=== PATIENT | male | born 1945 | race Caucasian/White ===

== ENCOUNTER 2017-10-19 10:06 | Inpatient (IN) | payer MEDICARE ==
[~2017-10-19] VITALS: Ht 167.6 cm; Wt 86.6 kg
[~2017-10-19 10:06] MED LIST: AMLO5TAB2 PO; ATEN50TA PO; CEPH-264 PO; CRESTOR20 MG PO; FENO145T2 PO; NPH,100V SQ; OMEG500C PO; [UNRECOGNIZED DRUG - CODE] PO
[2017-10-19 11:25] LABS: BASO # 0.1 x10^3/uL (0.0-0.2); BASO % 1 % (0-3); EOS % 3 % (0-3); HEMATOCRIT 33.5 % (39.0-53.0); HEMOGLOBIN 10.8 g/dL (13.0-17.5); LYMPH # 1.5 x10^3/uL (1.0-4.8); LYMPH % 13 % (24-48); MEAN CORPUSCULAR HEMOGLOBIN 30 pg (25-35); MEAN CORPUSCULAR HGB CONC 32 g/dL (31-37); MEAN CORPUSCULAR VOLUME 94 fL (79-100); MONO % 9 % (0-9); NEUT % 73 % (31-73); PLATELET COUNT 297 x10^3/uL (140-400); RED BLOOD COUNT 3.58 x10^6/uL (4.30-5.70); RED CELL DISTRIBUTION WIDTH 16.4 % (11.5-14.5); WHITE BLOOD COUNT 11.1 x10^3/uL (4.0-11.0)
--- NOTE | 2017-10-19 11:25 | PHYS DOC ---
Past Medical History Past Medical History: Arthritis, Diabetes-Type I, GERD, Hypertension, Renal Disease, Other Additional Past Medical Histor: HEMORRHOIDS Past Surgical History: Tonsillectomy, Other Additional Past Surgical Histo: AMPUTATION TOES L FOOT, CARDIAC STENTS, Alcohol Use: None Drug Use: None Adult General Chief Complaint Chief Complaint: LOWER EXTREMITY SWELLING HPI HPI Patient is a 72 year old male who presents with complaint of redness and swelling to the right lower extremity. Patient states his symptoms have been present over the past 1-2 days and have been progressively worsening. The patient has history of chronic diabetic ulcer of the right foot and is currently undergoing routine wound treatment for this wound. Patient follows Dr. Fatima for primary care. Patient states he's had mild increase in pain to the affected extremity but denies any other complaints. Patient denies any associated fevers, nausea, or weakness with his symptoms. Patient also notes he has history of end-stage renal disease and normally undergoes dialysis on Sunday, , and Sunday. Due to the holiday week however, the patient received dialysis on Sunday and Sunday of this week. Review of Systems Review of Systems Constitutional: Denies fever or chills [] Eyes: Denies change in visual acuity, redness, or eye pain [] HENT: Denies nasal congestion or sore throat [] Respiratory: Denies cough or shortness of breath [] Cardiovascular: Denies chest pain[] GI: Denies abdominal pain, nausea, vomiting, bloody stools or diarrhea [] : Denies dysuria or hematuria [] Musculoskeletal: Chronic edema[] Integument: Right lower show any swelling and redness[] Neurologic: Denies headache, focal weakness or sensory changes [] All other systems were reviewed and found to be within normal limits, except as documented in this note. Current Medications Current Medications Current Medications Medications (Trade) Dose Ordered Sig/Yari Start Time Stop Time Status Last Admin Dose Admin Vancomycin HCl (Vanco Per Pharmacy) 1 each PRN DAILY PRN 10/19/17 11:15 10/19/17 13:36 1 EACH Vancomycin HCl 2 gm/Dextrose/ Sodium Chloride 500 ml @ 250 mls/hr 1X ONCE 10/19/17 11:30 10/19/17 13:29 DC 10/19/17 11:28 250 MLS/HR Allergies Allergies Allergies Coded Allergies Type Severity Reaction Last Updated Verified No Known Drug Allergies 2/27/15 No Physical Exam Physical Exam Constitutional: Alert, afebrile, no acute distress. [] HENT: Normocephalic, atraumatic, bilateral external ears normal, oropharynx moist, no oral exudates, nose normal. [] Eyes: PERRLA, EOMI, conjunctiva normal, no discharge. [] Neck: Normal range of motion, no tenderness, supple, no stridor. [] Cardiovascular:Heart rate regular rhythm, no murmur [] Lungs & Thorax: Bilateral breath sounds clear to auscultation [] Abdomen: Bowel sounds normal, soft, no tenderness, no masses, no pulsatile masses. [] Skin: Warm, dry, erythema to right lower extremity. [] Back: No tenderness, no CVA tenderness. [] Extremities: Right lower extremity with 3+ pitting edema, confluence erythema extending to right knee from right foot, 4 cm chronic diabetic ulceration on the volar aspect of right foot with no purulent drainage, good granulation tissue, left lower extremity non-erythematous with 2+ pitting edema. [] Neurologic: Alert and oriented X 3, normal motor function, normal sensory function, no focal deficits noted. [] Current Patient Data Vital Signs Vital Signs Date Time Temp Pulse Resp B/P (MAP) Pulse Ox O2 Delivery O2 Flow Rate FiO2 10/19/17 12:34 94 140/72 (94) 99 Room Air 10/19/17 11:35 18 10/19/17 10:10 97.4 97.4 Lab Values Laboratory Tests Test 10/19/17 10:28 White Blood Count 11.1 x10^3/uL (4.0-11.0) H Red Blood Count 3.58 x10^6/uL (4.30-5.70) L Hemoglobin 10.8 g/dL (13.0-17.5) L Hematocrit 33.5 % (39.0-53.0) L Mean Corpuscular Volume 94 fL (79-100) Mean Corpuscular Hemoglobin 30 pg (25-35) Mean Corpuscular Hemoglobin Concent 32 g/dL (31-37) Red Cell Distribution Width 16.4 % (11.5-14.5) H Platelet Count 297 x10^3/uL (140-400) Neutrophils (%) (Auto) 73 % (31-73) Lymphocytes (%) (Auto) 13 % (24-48) L Monocytes (%) (Auto) 9 % (0-9) Eosinophils (%) (Auto) 3 % (0-3) Basophils (%) (Auto) 1 % (0-3) Neutrophils # (Auto) 8.1 x10^3uL (1.8-7.7) H Lymphocytes # (Auto) 1.5 x10^3/uL (1.0-4.8) Monocytes # (Auto) 1.0 x10^3/uL (0.0-1.1) Eosinophils # (Auto) 0.4 x10^3/uL (0.0-0.7) Basophils # (Auto) 0.1 x10^3/uL (0.0-0.2) Sodium Level 136 mmol/L (136-145) Potassium Level 4.0 mmol/L (3.5-5.1) Chloride Level 101 mmol/L (98-107) Carbon Dioxide Level 26 mmol/L (21-32) Anion Gap 9 (6-14) Blood Urea Nitrogen 25 mg/dL (8-26) Creatinine 4.0 mg/dL (0.7-1.3) H Estimated GFR (Cockcroft-Gault) 14.8 BUN/Creatinine Ratio 6 (6-20) Glucose Level 122 mg/dL (70-99) H Calcium Level 9.5 mg/dL (8.5-10.1) Total Bilirubin 0.3 mg/dL (0.2-1.0) Aspartate Amino Transferase (AST) 20 U/L (15-37) Alanine Aminotransferase (ALT) 17 U/L (16-63) Alkaline Phosphatase 136 U/L (46-116) H Total Protein 8.3 g/dL (6.4-8.2) H Albumin 2.9 g/dL (3.4-5.0) L Albumin/Globulin Ratio 0.5 (1.0-1.7) L Laboratory Tests 10/19/17 10:28 Laboratory Tests 10/19/17 10:28 EKG EKG Not performed[] Radiology/Procedures Radiology/Procedures Not performed[] Course & Med Decision Making Course & Med Decision Making Pertinent Labs and Imaging studies reviewed. (See chart for details) Patient has extensive cellulitis of the right lower extremity. The patient's diabetic wound does not appear to be actively infected though this may be a portal been treated for the patient's current lower show any infection. Given patient's end-stage renal disease and peripheral edema, the patient may have a complicated course and is at risk for severe infection. For this reason, the patient will be admitted the hospital and treated with vancomycin. Patient admitted to Dr. Fatima for further care. Dragon Disclaimer Dragon Disclaimer This electronic medical record was generated, in whole or in part, using a voice recognition dictation system. Departure Departure Impression: Primary Impression: Cellulitis of right lower extremity Additional Impressions: Diabetic foot ulcer End stage renal disease Peripheral edema Disposition: ADMITTED INPATIENT Admitting Physician: Julius Fatima Condition: GUARDED Referrals: JULIUS FATIMA MD (PCP) Problem Qualifiers Additional Impressions: Diabetic foot ulcer Diabetic foot ulcer location: midfoot Diabetes mellitus type: type 1 Laterality: right Non-pressure ulcer stage: with fat layer exposed Qualified Codes: E10.621 - Type 1 diabetes mellitus with foot ulcer; L97.412 - Non-pressure chronic ulcer of right heel and midfoot with fat layer exposed BREANA PISANO MD Oct 19, 2017 11:25
[2017-10-19] MEDS ORDERED: VANCOMYCIN 2 GM in IV DEXTROSE 5 %-0.2 % NACL 500 ML IV ONE (11:30)
[2017-10-19 11:36] LABS: CALCIUM 9.5 mg/dL (8.5-10.1); GFR 14.8
[2017-10-19 11:42] LABS: ALBUMIN 2.9 g/dL (3.4-5.0); ALBUMIN/GLOBULIN RATIO 0.5 (1.0-1.7); TOTAL BILIRUBIN 0.3 mg/dL (0.2-1.0); TOTAL PROTEIN 8.3 g/dL (6.4-8.2)
[2017-10-19] MEDS: VANCOMYCIN PER PHARMACY MC PRN (13:36)
[2017-10-19] MEDS ORDERED: ACETAMINOPHEN 325 MG TABLET. PO PRN (13:45)
[2017-10-19] MEDS ORDERED: ONDANSETRON PF 4 MG/2 ML VIAL. IV PRN (13:45)
[2017-10-19 15:00] VITALS: BP 115/53
[2017-10-19 19:00] VITALS: BP 134/81
[2017-10-19 23:00] VITALS: BP 150/81
[2017-10-20 03:00] VITALS: BP 101/58
[2017-10-20 04:44] LABS: BASO # 0.1 x10^3/uL (0.0-0.2); BASO % 1 % (0-3); EOS % 4 % (0-3); HEMATOCRIT 30.7 % (39.0-53.0); HEMOGLOBIN 10.1 g/dL (13.0-17.5); LYMPH # 0.9 x10^3/uL (1.0-4.8); LYMPH % 10 % (24-48); MEAN CORPUSCULAR HEMOGLOBIN 31 pg (25-35); MEAN CORPUSCULAR HGB CONC 33 g/dL (31-37); MEAN CORPUSCULAR VOLUME 94 fL (79-100); MONO % 11 % (0-9); NEUT % 75 % (31-73); PLATELET COUNT 241 x10^3/uL (140-400); RED BLOOD COUNT 3.28 x10^6/uL (4.30-5.70); RED CELL DISTRIBUTION WIDTH 15.8 % (11.5-14.5); WHITE BLOOD COUNT 9.9 x10^3/uL (4.0-11.0)
[2017-10-20 05:02] LABS: CREATININE 4.5 mg/dL (0.7-1.3); GFR 12.9; POTASSIUM 4.2 mmol/L (3.5-5.1)
[2017-10-20 07:25] VITALS: BP 142/89
[2017-10-20] MEDS ORDERED: DEXTROSE 50% 25 GM / 50ML DISP.SYRIN. IV PRN (07:45)
[2017-10-20] MEDS: INSULIN ASPART 300 UNITS/3 ML INSULN.PEN SQ SCH ×3 (07:56→16:34)
[2017-10-20] MEDS ORDERED: FENOFIBRATE,MICRONIZED 134 MG CAPSULE PO SCH (09:00)
[2017-10-20] MEDS ORDERED: CEPHALEXIN 250 MG CAPSULE. PO SCH (09:00)
[2017-10-20] MEDS: OMEGA-3 FATTY ACIDS/FISH OIL 1,000 MG CAPSULE. PO SCH (09:00)
[2017-10-20] MEDS ORDERED: ATENOLOL 50 MG TABLET. PO SCH (09:00)
[2017-10-20] MEDS ORDERED: FLAXSEED PO SCH (09:00)
[2017-10-20] MEDS ORDERED: amLODIPine BESYLATE 5 MG TABLET PO SCH (09:00)
[2017-10-20] MEDS ORDERED: ATOR20TA58 PO (09:12)
[2017-10-20] MEDS ORDERED: CHOL500016 PO (09:13)
[2017-10-20] MEDS ORDERED: ASPI-630 PO (09:13)
[2017-10-20] MEDS: ASPIRIN CHEWABLE 81 MG TABLET. PO SCH (09:33)
[2017-10-20] MEDS: CHOLECALCIFEROL (VITAMIN D3) 5,000 UNIT CAPSULE PO SCH (09:33)
--- NOTE | 2017-10-20 11:07 | PDOC ---
Provider Note Provider Note [id number] JORDIN WAGNER MD Oct 20, 2017 11:07
[2017-10-20 11:14] VITALS: BP 119/60
[2017-10-20] MEDS ORDERED: DIALYSIS PATIENT. MC PRN ×3 (11:15→12:45)
--- NOTE | 2017-10-20 11:23 | HP ---
ADMIT DATE: 10/19/2017 CHIEF COMPLAINT: Swollen leg. HISTORY OF PRESENT ILLNESS: A 72-year-old insulin-dependent male who is on hemodialysis for the last few months, has had a wound on his foot and has been cared for by a nurses' association counselor with this. Apparently, the wound has been improving, although he has been on oral cephalexin per the record, but then he developed increasing redness and swelling of his leg and came into the Emergency Room. He was admitted as a cellulitis with IV vancomycin and is in dialysis at this time. MEDICATIONS: Listed per the chart. He takes Humulin N twice a day at home. ALLERGIES: No allergies known. PAST MEDICAL HISTORY: Tetanus status is uncertain. He has a shunt in place for dialysis. Last A1c was 7.9 in June. Other immunizations are uncertain. SOCIAL HISTORY: , disabled, physically active, nondrinker. FAMILY HISTORY: Unremarkable. REVIEW OF SYSTEMS: Unremarkable. OBJECTIVE: HEENT: All within normal limits. He has a healed surgical wound on the scalp from prior skin cancer. NECK: No carotid bruits, nodes, or thyroid enlargement. LUNGS: Clear. CARDIOVASCULAR: Regular rate. No irregular beat, tachycardia or murmur. ABDOMEN: Obese, soft and nontender. EXTREMITIES: He has a large boot with a dressed wound on the left foot. The leg is swollen, red, diffusely tender, but no streaks or adenopathy is noted. Extremities otherwise are unremarkable. Decent pedal pulses in the other foot. NEUROLOGIC: Physiologic and nonfocal, very poor hearing. ASSESSMENT: Cellulitis, left lower extremity secondary to chronic foot wound. He has end-stage renal disease on dialysis and insulin-dependent diabetes as complicating factors. PLAN: Vancomycin after each dialysis. JORDIN WAGNER MD DR: YULIANA/luis JOB#: [id number] / [id number]
[2017-10-20] MEDS: PIPERACILLIN/TAZO IV Push 2.25 GM VIAL. IVP SCH ×2 (12:00→21:18)
[2017-10-20] MEDS ORDERED: PIPERACILLIN/TAZOBACTAM 2.25 GM in IV DEXTROSE 5% 50 ML IV SCH (12:00)
[2017-10-20] MEDS ORDERED: IV NORMAL SALINE 1000ML BAG 1,000 ML IV PRN ×2 (12:42)
[2017-10-20] MEDS: INSULIN DETEMIR 300 UNITS/3 ML INSULN.PEN. SQ SCH ×2 (13:00→21:00)
[2017-10-20] MEDS ORDERED: VANCOMYCIN 1 GM in IV DEXTROSE 5% 250 ML IV SCH (15:00)
[2017-10-20] MEDS: HEPARIN PF for SUB-Q USE 5,000 UNIT/0.5 ML VIAL. SQ SCH ×2 (15:00→21:00)
[2017-10-20] MEDS: VANCOMYCIN PER PHARMACY MC PRN (15:13)
[2017-10-20 16:46] VITALS: BP 122/59
--- NOTE | 2017-10-20 17:26 | CONS ---
DATE OF CONSULTATION: REQUESTING PHYSICIAN: Dr. Julius Fatima. REASON FOR CONSULTATION: Renal failure. HISTORY OF PRESENT ILLNESS: A 72-year-old gentleman with history of insulin-dependent diabetes mellitus who is currently on hemodialysis of recent. He undergoes dialysis on a Sunday, , Sunday schedule. He is currently admitted with some swelling of the right lower extremity with a wound on his right foot. This is felt consistent with cellulitis. PAST MEDICAL HISTORY: Diabetes mellitus, hypertension, end-stage renal disease, hemodialysis dependent, vascular access placement; anemia of chronic kidney disease, secondary hyperparathyroidism of renal disease. ALLERGIES: None. MEDICATIONS: Per medication list. FAMILY HISTORY: Noncontributory. SOCIAL HISTORY: The patient resides with family. REVIEW OF SYSTEMS: No headaches, sinus problem, nasal drainage, epistaxis, change in vision or hearing. No difficulty swallowing. No fever, chills, cough, sputum production, or hemoptysis. No chest pain or shortness of breath. No abdominal pain. He did have a fall, he has some pain in the right lower extremity to include the knee. No seizures or malignancies. PHYSICAL EXAMINATION: GENERAL APPEARANCE: The patient awake, conversant. HEENT: Clear with markedly reduced auditory acuity. NECK: No increased JVD. No thyromegaly, mass, adenopathy. LUNGS: Clear. CARDIAC: Without S3 or rub. ABDOMEN: Soft, nontender, no bruits. EXTREMITIES: Right greater than left lower extremity edema, 2+ right, 1+ left. NEUROLOGIC: Nonfocal localizing. PSYCHIATRIC: Fair attention to detail, appropriate affect. LABORATORY DATA: Hemoglobin 10.1, white count 9.9. Potassium 4.2, CO2 of 24, creatinine 4.5, GFR 12.9. IMPRESSION: 1. End-stage renal disease secondary to diabetic nephropathy -- hemodialysis dependent Sunday, , Sunday. 2. Anemia of chronic kidney disease. 3. Secondary hyperparathyroidism of renal disease. 4. Right lower extremity, primarily foot cellulitis. RECOMMENDATIONS: 1. Antibiotics pending culture results. 2. Ongoing dialysis Sunday, , Sunday. 3. Epogen for anemia of chronic kidney disease. We will follow. LYNDSAY AKERS MD DR: TYLOR/luis JOB#: [id number] / [id number]
[2017-10-20 19:00] VITALS: BP 123/70
[2017-10-20] MEDS ORDERED: ATORVASTATIN CALCIUM 40 MG TABLET. PO SCH (21:00)
[2017-10-20] MEDS: LACTOBACILLUS RHAMNOSUS GG 1 CAPSULE. PO SCH (21:17)
[2017-10-20] MEDS: ATORVASTATIN CALCIUM 20 MG TABLET PO SCH (21:20)
[2017-10-20 23:00] VITALS: BP 107/50
[2017-10-21 03:14] VITALS: BP 107/54
[2017-10-21] MEDS ORDERED: VANCOMYCIN RANDOM LEVEL. MC ONE (06:00)
[2017-10-21] MEDS: PIPERACILLIN/TAZO IV Push 2.25 GM VIAL. IVP SCH ×3 (06:30→21:21)
[2017-10-21 07:00] VITALS: BP 116/53
[2017-10-21] MEDS: OMEGA-3 FATTY ACIDS/FISH OIL 1,000 MG CAPSULE. PO SCH (07:11)
--- NOTE | 2017-10-21 08:35 | PDOC ---
Provider Note Provider Note R lower leg less swollen and tender, no streaks/nodes, knee ok- 4 x 4 cm subq wound plantar foor clean , red, good cap bleeding, no tunneling/drainage seen- sees educational resource coordinator re same, last 1 m ago- will xr but no clinical osteo- cont current meds, id consult re op needs JORDIN WAGNER MD Oct 21, 2017 08:35
[2017-10-21] MEDS: LACTOBACILLUS RHAMNOSUS GG 1 CAPSULE. PO SCH ×2 (08:58→21:21)
[2017-10-21] MEDS: CHOLECALCIFEROL (VITAMIN D3) 5,000 UNIT CAPSULE PO SCH (08:58)
[2017-10-21] MEDS: ASPIRIN CHEWABLE 81 MG TABLET. PO SCH (08:58)
[2017-10-21] MEDS: INSULIN ASPART 300 UNITS/3 ML INSULN.PEN SQ SCH ×4 (09:05→21:38)
[2017-10-21] MEDS: VANCOMYCIN PER PHARMACY MC PRN (09:33)
[2017-10-21] MEDS ORDERED: VANCOMYCIN 500 MG in IV DEXTROSE 5% 100 ML IV SCH (10:00)
[2017-10-21] MEDS: VANCOMYCIN 500 MG in IV NORMAL SALINE 100ML 100 ML IV SCH (10:00)
[2017-10-21 11:00] VITALS: BP 131/63
--- NOTE | 2017-10-21 12:00 | RAD ---
FOOT RIGHT 2V History:Plantar ulcer right foot Comparison: 06/18/2006 Findings:2 views of the right foot are submitted. There is again small linear wire at the level of the mid foot posteriorly at level of the third and fourth tarsometatarsal articulation. There has been progression of marginated osteolysis of the distal aspects of the second and third metatarsals, some minimal residual bone fragments in this region. There is bone demineralization. The no aggressive bone destruction is seen at the plantar margin of the bones. There is other osteolysis of the distal aspects of the first, fourth, and fifth metatarsals as seen previously. Impression: 1.Comparing with the 2005 exam, there has been further progression of osteolysis involving the distal aspects of the second and third metatarsals although fairly marginated. There is other osteolysis of the metatarsals which is more similar in appearance. No aggressive focal bone destruction is identified. There is bone demineralization. There is again small wire of the posterior mid foot laterally.
--- NOTE | 2017-10-21 12:21 | PDOC ---
Infectious Disease Note Vital Sign Vital Signs Vital Signs Date Time Temp Pulse Resp B/P (MAP) Pulse Ox O2 Delivery O2 Flow Rate FiO2 10/21/17 07:00 97.9 81 16 116/53 (74) 94 Room Air 97.9 Labs Lab Laboratory Tests Test 10/20/17 16:29 10/20/17 20:34 10/21/17 07:29 10/21/17 08:20 Glucose (Fingerstick) 91 mg/dL (70-99) 192 mg/dL (70-99) 177 mg/dL (70-99) Random Vancomycin Level 14.3 mcg/mL Test 10/21/17 11:42 Glucose (Fingerstick) 245 mg/dL (70-99) Objective Assessment Chronic diabetic ulcer w/ cellulitis of right foot Diabetes with neuropathy Leukocytosis, improved CKD/HD Plan Plan of Care continue abx for now. Check ESR and await x-ray results F/u labs and cultures Local wound care Thank you [id number] Patient seen and examined. Case discussed with PRODUCT SPECIALIST. Chart reviewed in [facility]aii. Agree with above plan. ROLANDO LYONS APRN Oct 21, 2017 12:21 DEBRA BORJAS MD Oct 21, 2017 16:29
[2017-10-21] MEDS: INSULIN DETEMIR 300 UNITS/3 ML INSULN.PEN. SQ SCH (13:24)
[2017-10-21 15:00] VITALS: BP 110/57
[2017-10-21 19:00] VITALS: BP 126/58
[2017-10-21] MEDS ORDERED: INSULIN DETEMIR 300 UNITS/3 ML INSULN.PEN. SQ ONE (20:45)
[2017-10-21] MEDS: ATORVASTATIN CALCIUM 20 MG TABLET PO SCH (21:21)
[2017-10-21 23:00] VITALS: BP 115/54
--- NOTE | 2017-10-21 23:56 | CONS ---
DATE OF CONSULTATION: 10/21/2017 This is Yared Unger NP, dictating for Debra Borjas MD REFERRING PHYSICIAN: Dr. Fatima. REASON FOR CONSULTATION: Foot ulcer. HISTORY OF PRESENT ILLNESS: This patient is a 72-year-old male with a past medical history of diabetes mellitus with neuropathy who developed an ulcer on his right foot about 4 months ago. He is followed by handbag framer, Dr. Melo and had undergone previous debridements and he was recently on Keflex. Over the last couple days, he has noticed increased pain, swelling and redness of the right foot. He had a slight elevation of his white count and an x-ray is pending. He was started on vancomycin and Zosyn in the ER. PAST MEDICAL HISTORY: Chronic kidney disease on hemodialysis, diabetes mellitus, peripheral neuropathy, history of polio as a child with several foot surgeries, coronary artery disease, hyperlipidemia, hypertension, gastroesophageal reflux disease, umbilical hernia, hyperparathyroidism and anemia of chronic kidney disease. PAST SURGICAL HISTORY: Tonsillectomy, coronary stents, amputation of several toes and foot surgeries, AV fistula formation. SOCIAL HISTORY: The patient is and lives at home. Nonsmoker. FAMILY HISTORY: Noncontributory. ALLERGIES: No known drug allergies. MEDICATIONS: Vancomycin and Zosyn. Other medications are available and have been reviewed on the MAR. REVIEW OF SYSTEMS: The patient is feeling fairly comfortable. He is enjoying his lunch currently. He says he fell a couple days ago and since having some mild right knee pain. He is ambulatory with a walker. He denies trouble with weightbearing. He feels the redness and swelling of right foot is improving. Denies fevers, chills or body aches. Denies nausea, vomiting or diarrhea. Denies cough, shortness of air or wheezing. Denies palpitations or rash. PHYSICAL EXAMINATION: GENERAL: male, propped up in bed, eating, no apparent distress. VITAL SIGNS: Afebrile, blood pressure is 116/53, heart rate 81, respiratory rate 16, pulse oximetry is 94% on room air, weight 190 pounds. BMI 30. HEENT: Pupils equally round, reactive. Normal conjunctivae. Oral mucosa is pink and moist. LUNGS: Clear. HEART: Normal S1 and S2. ABDOMEN: Obese. Bowel sounds present, soft, nontender. EXTREMITIES: Right lower extremity 1+ edema, slightly erythematous and warm. He has a plantar ulcer that appears clean. Refer to PICK's in chart. Dorsalis pedis palpable. SKIN: Without rash. NEUROLOGIC: Alert and oriented x 3. LABORATORY DATA: Today, his WBC 9.9 from 11.1 on admission, hemoglobin is 10.1, hematocrit 30.7, platelet count 241,000. Recent creatinine 4.5, BUN 30. Electrolytes are unremarkable. Glucose 155. Hemoglobin A1c 7.0, total bilirubin 0.3, AST 20, ALT 17, albumin 2.9. Random vancomycin trough 14.3. X-ray right foot pending. Urinalysis is pending. IMPRESSION: 1. Chronic diabetic ulcer with cellulitis of right foot. 2. Diabetes with neuropathy. 3. Leukocytosis. 4. Chronic kidney disease, on hemodialysis. PLAN: For now, continue the antibiotics. We will check a sed rate and await x-ray of the foot. Local wound care. Thank you, Dr. Fatima for asking us to participate in this patient's care. Should you have further questions or concerns, please call. DEBRA BORJAS MD DR: TRA/luis JOB#: [id number] / [id number]
[2017-10-22 03:00] VITALS: BP 136/56
[2017-10-22] MEDS: PIPERACILLIN/TAZO IV Push 2.25 GM VIAL. IVP SCH ×3 (06:21→22:38)
[2017-10-22 07:00] VITALS: BP 133/74
--- NOTE | 2017-10-22 08:11 | PDOC ---
Provider Note Provider Note no temp, R lower leg looks better, plantar ulcer clean, xr shows no sign of osteo- on vanco,zosyn, could dc zosyn? likely gram + is culprit, then po keflex/ clinda?, will get ID opinion- encouraged to take his levemir re high glucose, takes 90/d at home JORDIN WAGNER MD Oct 22, 2017 08:11
[2017-10-22] MEDS ORDERED: INSULIN DETEMIR 300 UNITS/3 ML INSULN.PEN. SQ SCH ×2 (09:00)
[2017-10-22] MEDS: LACTOBACILLUS RHAMNOSUS GG 1 CAPSULE. PO SCH ×2 (09:28→21:45)
[2017-10-22] MEDS: ASPIRIN CHEWABLE 81 MG TABLET. PO SCH (09:28)
[2017-10-22] MEDS: CHOLECALCIFEROL (VITAMIN D3) 5,000 UNIT CAPSULE PO SCH (09:28)
[2017-10-22] MEDS: OMEGA-3 FATTY ACIDS/FISH OIL 1,000 MG CAPSULE. PO SCH (09:28)
[2017-10-22 11:00] VITALS: BP 127/71
[2017-10-22] MEDS: INSULIN ASPART 300 UNITS/3 ML INSULN.PEN SQ SCH ×2 (12:45→17:22)
--- NOTE | 2017-10-22 13:54 | PDOC ---
Infectious Disease Note Subjective Subjective pt feels ok, no complaints ROS ROS negative extensive ros Vital Sign Vital Signs Vital Signs Date Time Temp Pulse Resp B/P (MAP) Pulse Ox O2 Delivery O2 Flow Rate FiO2 10/22/17 11:00 95.9 81 18 127/71 (89) 94 Room Air 95.9 Physical Exam PHYSICAL EXAM HEENT: anicteric ,normal oral mucosa LUNGS: Clear. HEART: Normal S1 and S2. ABDOMEN: Obese. Bowel sounds present, soft, nontender. EXTREMITIES: Right lower extremity 1+ edema, slightly erythematous and warm. He has a plantar ulcer that appears clean. Refer to PICs in chart. SKIN: no gen rash. NEUROLOGIC: Alert and oriented x 3. Labs Lab Laboratory Tests Test 10/21/17 16:41 10/21/17 20:19 10/22/17 03:11 10/22/17 10:20 Glucose (Fingerstick) 309 mg/dL (70-99) 409 mg/dL (70-99) 253 mg/dL (70-99) 238 mg/dL (70-99) Micro BC NEG Radiology X ray foot Impression: 1.Comparing with the 2005 exam, there has been further progression of osteolysis involving the distal aspects of the second and third metatarsals although fairly marginated. There is other osteolysis of the metatarsals which is more similar in appearance. No aggressive focal bone destruction is identified. There is bone demineralization. There is again small wire of the posterior mid foot laterally. Objective Assessment Chronic diabetic ulcer w/ cellulitis of right foot Diabetes with neuropathy Leukocytosis, improved CKD/HD Plan Plan of Care continue abx for now. F/u labs and cultures Local wound care KIRT POOL MD Oct 22, 2017 13:53
[2017-10-22] MEDS: VANCOMYCIN PER PHARMACY MC PRN (13:59)
[2017-10-22 15:00] VITALS: BP 123/64
[2017-10-22 19:30] VITALS: BP 147/72
[2017-10-22] MEDS: ATORVASTATIN CALCIUM 20 MG TABLET PO SCH (21:45)
[2017-10-22] MEDS ORDERED: INSULIN ASPART 300 UNITS/3 ML INSULN.PEN SQ ONE (22:00)
[2017-10-22 23:00] VITALS: BP 106/55
[2017-10-23 03:16] VITALS: BP 129/60
[2017-10-23] MEDS: PIPERACILLIN/TAZO IV Push 2.25 GM VIAL. IVP SCH (06:00)
[2017-10-23 07:23] VITALS: BP 138/70
--- NOTE | 2017-10-23 08:17 | DISCH ---
DISCHARGE INSTRUCTIONS Condition on Discharge Condition on Discharge: Stable Activity After Discharge Activity Instructions for Disc: No restrictions Diet after Discharge Diet after Discharge: Diabetic No Calorie Level Follow-Up Follow up with: JORDIN Ch MD Oct 23, 2017 08:17
--- NOTE | 2017-10-23 08:21 | PDOC ---
Provider Note Provider Note [id number] JORDIN WAGNER MD Oct 23, 2017 08:21
[2017-10-23] MEDS ORDERED: INSULIN DETEMIR 300 UNITS/3 ML INSULN.PEN. SQ SCH (09:00)
[2017-10-23] MEDS: LACTOBACILLUS RHAMNOSUS GG 1 CAPSULE. PO SCH (09:06)
[2017-10-23] MEDS: ASPIRIN CHEWABLE 81 MG TABLET. PO SCH (09:06)
[2017-10-23] MEDS: OMEGA-3 FATTY ACIDS/FISH OIL 1,000 MG CAPSULE. PO SCH (09:06)
[2017-10-23] MEDS: CHOLECALCIFEROL (VITAMIN D3) 5,000 UNIT CAPSULE PO SCH (09:06)
[2017-10-23] MEDS: INSULIN ASPART 300 UNITS/3 ML INSULN.PEN SQ SCH ×3 (09:16→17:19)
[2017-10-23 11:09] VITALS: BP 137/68
--- NOTE | 2017-10-23 12:09 | PDOC ---
Infectious Disease Note Subjective Subjective pt feels ok, no complaints been dc home today after dialyss session rt leg swelling,redness resolving no f/c/n/v/d ROS ROS GEN: Denies fevers, chills, sweats HEENT: Denies blurred vision, sore throat CV: Denies chest pain RESP: Denies shortness of air, cough GI: Denies n/v/d NEURO: Denies confusion, dizziness MSK: Denies weakness, joint pain/swelling Vital Sign Vital Signs Vital Signs Date Time Temp Pulse Resp B/P (MAP) Pulse Ox O2 Delivery O2 Flow Rate FiO2 10/23/17 11:09 97.2 78 16 137/68 (91) 95 Room Air 97.2 10/23/17 07:23 98.0 Physical Exam PHYSICAL EXAM HEENT: anicteric ,normal oral mucosa LUNGS: Clear. HEART: Normal S1 and S2. ABDOMEN: Obese. Bowel sounds present, soft, nontender. EXTREMITIES: Right lower extremity edema,erythema ,warmth almost resolved He has a plantar ulcer that appears clean. SKIN: no gen rash. NEUROLOGIC: Alert and oriented x 3. Labs Lab Laboratory Tests Test 10/22/17 16:25 10/22/17 21:36 10/23/17 07:45 10/23/17 11:56 Glucose (Fingerstick) 267 mg/dL (70-99) 339 mg/dL (70-99) 213 mg/dL (70-99) 255 mg/dL (70-99) Micro BC NEG Radiology X ray foot Impression: 1.Comparing with the 2005 exam, there has been further progression of osteolysis involving the distal aspects of the second and third metatarsals although fairly marginated. There is other osteolysis of the metatarsals which is more similar in appearance. No aggressive focal bone destruction is identified. There is bone demineralization. There is again small wire of the posterior mid foot laterally. Objective Assessment Chronic diabetic ulcer w/ cellulitis of right foot improving Diabetes with neuropathy Leukocytosis resolved CKD/HD Plan Plan of Care Pt is been dc home today dc iv abx will dc home on po keflex, renal dosing and doxycycline s/e explained including c diff edu done F/u pcp in 2 weeks Local wound care KIRT POOL MD Oct 23, 2017 12:09
[2017-10-23] MEDS ORDERED: IV NORMAL SALINE 1000ML BAG 1,000 ML IV PRN ×2 (12:43)
[2017-10-23] MEDS ORDERED: DIALYSIS PATIENT. MC PRN ×2 (12:45)
--- NOTE | 2017-10-23 15:55 | DS ---
DATE OF DISCHARGE: 10/23/2017 HOSPITAL SUMMARY: A 72-year-old white male recently started on dialysis. He is also an insulin-dependent diabetic with chronic right plantar wound. He developed cellulitis of the right lower extremity extending up to the mid calf with tenderness, redness and swelling. He was afebrile throughout the hospital course. CBC was unremarkable. Sed rate elevated at 71. Chemistry profile showed elevated blood sugars and creatinine 4.5 consistent with end-stage renal disease. Vitamin D level was normal at 37. Vancomycin levels were therapeutic. Blood cultures had no growth. X-ray of the foot showed no sign of any osteomyelitis. He was treated with IV vancomycin and Zosyn and is clinically much improved, will be given another dose of vancomycin after dialysis today and switched to oral cephalexin therapy and followed as an outpatient. FINAL DIAGNOSES: 1. Cellulitis of the right lower extremity. 2. Diabetic foot ulcer, right foot, chronic, stable. 3. End-stage renal disease, on dialysis. OPERATIONS, PROCEDURES, COMPLICATIONS: None. CONSULTATIONS: Dr. Alf Bailey of Infectious Disease. DISPOSITION: He will take Keflex 500 mg daily starting tomorrow and after each dialysis session. We will see him in the office in 3 days in clinical followup as we do not know the specific organism of the cellulitis, but the foot wound looks very clean and not deep and tracking clinically. Prognosis is guarded. JORDIN WAGNER MD DR: YULIANA/nts JOB#: [id number] / [id number]
[2017-10-23] MEDS: VANCOMYCIN 500 MG in IV NORMAL SALINE 100ML 100 ML IV SCH (16:00)
[2017-10-23] MEDS ORDERED: DOXY100T PO (16:00)
[2017-10-23] MEDS ORDERED: CEPH-264 PO (16:00)
== END 2017-10-23 17:45 | disposition home or self-care (01) | DRG 602 ==
LOC: ER 10:06 → 4 NORTH 13:18
PROVIDERS: ADMIT Family Medicine; ATTEND Family Medicine
PROC: 5A1D70Z Performance of Urinary Filtration, Intermittent, Less than 6 Hours Per Day (ICD-10-PCS; principal; 2017-10-20)
PROC: 5A1D70Z Performance of Urinary Filtration, Intermittent, Less than 6 Hours Per Day (ICD-10-PCS; 2017-10-20)
DX: L03.115 Cellulitis of right lower limb (principal); N18.6 End stage renal disease; E11.21 Type 2 diabetes mellitus with diabetic nephropathy; E11.42 Type 2 diabetes mellitus with diabetic polyneuropathy; I12.0 Hypertensive chronic kidney disease with stage 5 chronic kidney disease or end stage renal disease; N25.81 Secondary hyperparathyroidism of renal origin; E11.621 Type 2 diabetes mellitus with foot ulcer; L97.519 Non-pressure chronic ulcer of other part of right foot with unspecified severity; L03.116 Cellulitis of left lower limb; D63.1 Anemia in chronic kidney disease; E11.22 Type 2 diabetes mellitus with diabetic chronic kidney disease; Z79.4 Long term (current) use of insulin; K21.9 Gastro-esophageal reflux disease without esophagitis; M81.0 Age-related osteoporosis without current pathological fracture; Z86.12 Personal history of poliomyelitis; Z95.5 Presence of coronary angioplasty implant and graft; Z99.2 Dependence on renal dialysis; M19.90 Unspecified osteoarthritis, unspecified site; Z89.429 Acquired absence of other toe(s), unspecified side
CPT/HCPCS: 36415; 73620; 80048; 80053; 80202; 82306; 82962; 83036; 85025; 85651; 87040; 96365; 96366; J1815; J2543; J3370; 97530; 99285-25

== ENCOUNTER 2018-06-20 14:37 | Inpatient (IN) | payer MEDICARE ==
[2018-06-20 16:32] LABS: HEMATOCRIT 36.3 % (39.0-53.0); HEMOGLOBIN 12.3 g/dL (13.0-17.5); MEAN CORPUSCULAR HEMOGLOBIN 33 pg (25-35); MEAN CORPUSCULAR HGB CONC 34 g/dL (31-37); MEAN CORPUSCULAR VOLUME 97 fL (79-100); PLATELET COUNT 280 x10^3/uL (140-400); RED BLOOD COUNT 3.74 x10^6/uL (4.30-5.70); RED CELL DISTRIBUTION WIDTH 14.6 % (11.5-14.5); WHITE BLOOD COUNT 12.6 x10^3/uL (4.0-11.0)
[2018-06-20 16:42] LABS: INR 1.1 (0.8-1.1); PROTHROMBIN TIME PATIENT 13.7 SEC (11.7-14.0)
[2018-06-20 16:49] LABS: ALBUMIN 2.9 g/dL (3.4-5.0); ALBUMIN/GLOBULIN RATIO 0.5 (1.0-1.7); ALK PHOS 133 U/L (46-116); ALT (SGPT) 21 U/L (16-63); ANION GAP 9 (6-14); AST (SGOT) 15 U/L (15-37); BLOOD UREA NITROGEN 39 mg/dL (8-26); BUN/CREATININE RATIO 10 (6-20); C-REACTIVE PROTEIN 46.3 mg/L (0-3.3); CALCIUM 8.7 mg/dL (8.5-10.1); CARBON DIOXIDE 29 mmol/L (21-32); CHLORIDE 98 mmol/L (98-107); CREATININE 4.1 mg/dL (0.7-1.3); GFR 14.4; GLUCOSE 220 mg/dL (70-99); POTASSIUM 3.9 mmol/L (3.5-5.1); SODIUM 136 mmol/L (136-145); TOTAL BILIRUBIN 0.3 mg/dL (0.2-1.0)
[2018-06-20 17:13] LABS: POC GLUCOSE 161 mg/dL (70-99)
[2018-06-20] MEDS: PIPERACILLIN/TAZOBACTAM 3.375 GM in IV NORMAL SALINE 50ML 50 ML IV (17:25)
[2018-06-20 17:33] LABS: SEDIMENTATION RATE 60 (0-15)
[2018-06-20] MEDS: VANCOMYCIN PER PHARMACY MC (17:51)
[2018-06-20] MEDS ORDERED: PIPERACILLIN/TAZOBACTAM 4.5 GM in IV NORMAL SALINE 100ML 100 ML IV (18:00)
[2018-06-20] MEDS: VANCOMYCIN 2 GM in IV NORMAL SALINE 500ML BAG 500 ML IV (18:19)
[2018-06-20] MEDS: HEPARIN PF for SUB-Q USE 5,000 UNIT/0.5 ML VIAL. SQ (21:00)
[2018-06-20] MEDS: ATORVASTATIN CALCIUM 20 MG TABLET PO (21:00)
[2018-06-20 21:17] LABS: POC GLUCOSE 163 mg/dL (70-99)
[2018-06-20] MEDS: PIPERACILLIN/TAZOBACTAM 2.25 GM in IV NORMAL SALINE 50ML 50 ML IV (21:31)
[2018-06-20] MEDS: INSULIN GLARGINE 300 UNITS/3 ML INSULN.PEN. SQ (21:38)
[2018-06-21] MEDS: PIPERACILLIN/TAZOBACTAM 2.25 GM in IV NORMAL SALINE 50ML 50 ML IV ×3 (05:49→21:10)
[2018-06-21 07:50] LABS: POC GLUCOSE 53 mg/dL (70-99)
[2018-06-21] MEDS: ASPIRIN CHEWABLE 81 MG TABLET. PO (08:00)
[2018-06-21 08:15] LABS: POC GLUCOSE 64 mg/dL (70-99)
[2018-06-21] MEDS ORDERED: HYDROcodone/APAP 5/325MG 1 TAB TABLET PO (08:30)
[2018-06-21] MEDS: HEPARIN PF for SUB-Q USE 5,000 UNIT/0.5 ML VIAL. SQ ×2 (09:00→21:00)
[2018-06-21 09:46] LABS: ADD MAN DIFF? NO
[2018-06-21 09:59] LABS: ANION GAP 12 (6-14); BLOOD UREA NITROGEN 42 mg/dL (8-26); CALCIUM 8.9 mg/dL (8.5-10.1); CARBON DIOXIDE 24 mmol/L (21-32); CHLORIDE 101 mmol/L (98-107); CREATININE 4.4 mg/dL (0.7-1.3); GFR 13.3; GLUCOSE 130 mg/dL (70-99); POTASSIUM 4.2 mmol/L (3.5-5.1); SODIUM 137 mmol/L (136-145)
[2018-06-21 10:05] LABS: BASO # 0.1 x10^3/uL (0.0-0.2); BASO % 1 % (0-3); EOS # 0.1 x10^3/uL (0.0-0.7); EOS % 1 % (0-3); HEMATOCRIT 34.7 % (39.0-53.0); HEMOGLOBIN 11.6 g/dL (13.0-17.5); LYMPH % 9 % (24-48); MEAN CORPUSCULAR HEMOGLOBIN 33 pg (25-35); MEAN CORPUSCULAR HGB CONC 33 g/dL (31-37); MEAN CORPUSCULAR VOLUME 97 fL (79-100); MONO # 0.8 x10^3/uL (0.0-1.1); MONO % 7 % (0-9); NEUT # 8.8 x10^3uL (1.8-7.7); NEUT % 82 % (31-73); PLATELET COUNT 258 x10^3/uL (140-400); RED BLOOD COUNT 3.58 x10^6/uL (4.30-5.70); RED CELL DISTRIBUTION WIDTH 14.6 % (11.5-14.5); WHITE BLOOD COUNT 10.8 x10^3/uL (4.0-11.0)
[2018-06-21 11:20] LABS: POC GLUCOSE 130 mg/dL (70-99)
[2018-06-21 16:36] LABS: POC GLUCOSE 214 mg/dL (70-99)
[2018-06-21 20:13] LABS: POC GLUCOSE 254 mg/dL (70-99)
[2018-06-21] MEDS: ATORVASTATIN CALCIUM 20 MG TABLET PO (21:08)
[2018-06-21] MEDS: LACTOBACILLUS RHAMNOSUS GG 1 CAPSULE. PO (21:08)
[2018-06-21] MEDS: INSULIN GLARGINE 300 UNITS/3 ML INSULN.PEN. SQ (21:19)
[2018-06-22 01:14] LABS: HEMOGLOBIN A1C 7.5 % (4.8-5.6)
[2018-06-22] MEDS: VANCOMYCIN RANDOM LEVEL. MC (05:00)
[2018-06-22] MEDS: PIPERACILLIN/TAZOBACTAM 2.25 GM in IV NORMAL SALINE 50ML 50 ML IV ×3 (05:53→22:13)
[2018-06-22] MEDS ORDERED: IV NORMAL SALINE 1000ML BAG 1,000 ML IV ×2 (07:38)
[2018-06-22 07:40] LABS: POC GLUCOSE 73 mg/dL (70-99)
[2018-06-22] MEDS ORDERED: LABETALOL 20 MG/4 ML DISP.SYRIN. IVP (07:45)
[2018-06-22] MEDS ORDERED: DIALYSIS PATIENT. MC ×2 (07:45)
[2018-06-22] MEDS: ASPIRIN CHEWABLE 81 MG TABLET. PO (08:00)
[2018-06-22] MEDS: HEPARIN PF for SUB-Q USE 5,000 UNIT/0.5 ML VIAL. SQ ×2 (09:00→22:19)
[2018-06-22] MEDS: VANCOMYCIN PER PHARMACY MC (09:34)
[2018-06-22 11:07] LABS: HEPATITIS B SURFACE AB Nonreactive
[2018-06-22 12:58] LABS: POC GLUCOSE 56 mg/dL (70-99)
[2018-06-22] MEDS: LACTOBACILLUS RHAMNOSUS GG 1 CAPSULE. PO ×2 (13:21→20:38)
[2018-06-22 13:35] LABS: POC GLUCOSE 112 mg/dL (70-99)
[2018-06-22] MEDS: VANCOMYCIN 500 MG in IV NORMAL SALINE 100ML 100 ML IV (16:31)
[2018-06-22 16:32] LABS: POC GLUCOSE 152 mg/dL (70-99)
[2018-06-22] MEDS: ATORVASTATIN CALCIUM 20 MG TABLET PO (20:38)
[2018-06-22] MEDS: INSULIN GLARGINE 300 UNITS/3 ML INSULN.PEN. SQ (20:41)
[2018-06-22 20:46] LABS: POC GLUCOSE 211 mg/dL (70-99)
[2018-06-23] MEDS: PIPERACILLIN/TAZOBACTAM 2.25 GM in IV NORMAL SALINE 50ML 50 ML IV ×3 (06:04→22:00)
[2018-06-23] MEDS: ASPIRIN CHEWABLE 81 MG TABLET. PO (08:00)
[2018-06-23 08:04] LABS: POC GLUCOSE 107 mg/dL (70-99)
[2018-06-23] MEDS: LACTOBACILLUS RHAMNOSUS GG 1 CAPSULE. PO ×2 (08:36→21:07)
[2018-06-23] MEDS ORDERED: ATORVASTATIN CALCIUM 20 MG TABLET PO (09:00)
[2018-06-23] MEDS: HEPARIN PF for SUB-Q USE 5,000 UNIT/0.5 ML VIAL. SQ ×2 (09:00→21:00)
[2018-06-23] MEDS ORDERED: ASPIRIN CHEWABLE 81 MG TABLET. PO (09:00)
[2018-06-23] MEDS: VANCOMYCIN PER PHARMACY MC (10:01)
[2018-06-23 11:40] LABS: POC GLUCOSE 161 mg/dL (70-99)
[2018-06-23] MEDS: INSULIN GLARGINE 300 UNITS/3 ML INSULN.PEN. SQ (21:00)
[2018-06-23] MEDS: ATORVASTATIN CALCIUM 20 MG TABLET PO (21:07)
[2018-06-23 21:10] LABS: POC GLUCOSE 260 mg/dL (70-99)
[2018-06-24] MEDS: PIPERACILLIN/TAZOBACTAM 2.25 GM in IV NORMAL SALINE 50ML 50 ML IV ×3 (06:17→20:56)
[2018-06-24] MEDS: ASPIRIN CHEWABLE 81 MG TABLET. PO (08:00)
[2018-06-24] MEDS: LACTOBACILLUS RHAMNOSUS GG 1 CAPSULE. PO ×2 (09:00→20:55)
[2018-06-24] MEDS: HEPARIN PF for SUB-Q USE 5,000 UNIT/0.5 ML VIAL. SQ ×2 (09:00→20:56)
[2018-06-24] MEDS: INSULIN GLARGINE 300 UNITS/3 ML INSULN.PEN. SQ ×2 (09:16→21:07)
[2018-06-24] MEDS ORDERED: LIDOCAINE 2% PF Vial for OR 5 ML VIAL. (11:03)
[2018-06-24] MEDS ORDERED: PROPOFOL 20 ML IV (11:03)
[2018-06-24] MEDS ORDERED: fentaNYL PF VIAL 100 MCG/2 ML VIAL (11:03)
[2018-06-24 11:16] LABS: POC GLUCOSE 221 mg/dL (70-99)
[2018-06-24 11:16] LABS: POC GLUCOSE 178 mg/dL (70-99)
[2018-06-24] MEDS: VANCOMYCIN PER PHARMACY MC (12:00)
[2018-06-24] MEDS ORDERED: ONDANSETRON PF 4 MG/2 ML VIAL. (14:14)
[2018-06-24] MEDS ORDERED: ePHEDrine PF IN SALINE 50 MG/5 ML DISP.SYRIN IV (14:20)
[2018-06-24] MEDS: MULTIVITAMIN with MINERAL TABLET. PO (15:42)
[2018-06-24] MEDS: ASCORBIC ACID 500 MG TABLET PO (15:42)
[2018-06-24 16:40] LABS: POC GLUCOSE 167 mg/dL (70-99)
[2018-06-24 20:33] LABS: POC GLUCOSE 221 mg/dL (70-99)
[2018-06-24 20:41] LABS: POC GLUCOSE 182 mg/dL (70-99)
[2018-06-24] MEDS: ATORVASTATIN CALCIUM 20 MG TABLET PO (20:55)
[2018-06-24] MEDS: ATROPINE 0.5 MG/5 ML DISP.SYRINGE. IV (22:55)
[2018-06-24] MEDS: EPINEPHrine SYRINGE 1 MG/10 ML SYRINGE IV (23:00)
[2018-06-25 00:07] LABS: ANION GAP 13 (6-14); BLOOD UREA NITROGEN 41 mg/dL (8-26); CALCIUM 8.5 mg/dL (8.5-10.1); CARBON DIOXIDE 24 mmol/L (21-32); CHLORIDE 100 mmol/L (98-107); CREATININE 4.8 mg/dL (0.7-1.3); GLUCOSE 340 mg/dL (70-99); POTASSIUM 4.8 mmol/L (3.5-5.1); SODIUM 137 mmol/L (136-145)
[2018-06-25 00:22] LABS: THYROID STIM HORMONE (TSH) 6.152 uIU/mL (0.358-3.74)
[2018-06-25] MEDS ORDERED: LIDOCAINE 2% 20 ML VIAL. (02:09)
[2018-06-25] MEDS: LIDOCAINE 2% 20 ML VIAL. IJ (02:45)
[2018-06-25] MEDS: PIPERACILLIN/TAZOBACTAM 2.25 GM in IV NORMAL SALINE 50ML 50 ML IV ×3 (06:17→21:39)
[2018-06-25 06:38] LABS: POC GLUCOSE 371 mg/dL (70-99)
[2018-06-25 06:40] LABS: BASO # 0.1 x10^3/uL (0.0-0.2); BASO % 1 % (0-3); EOS % 0 % (0-3); HEMATOCRIT 34.3 % (39.0-53.0); HEMOGLOBIN 11.6 g/dL (13.0-17.5); LYMPH # 0.6 x10^3/uL (1.0-4.8); LYMPH % 4 % (24-48); MEAN CORPUSCULAR HEMOGLOBIN 33 pg (25-35); MEAN CORPUSCULAR HGB CONC 34 g/dL (31-37); MEAN CORPUSCULAR VOLUME 97 fL (79-100); MONO # 0.8 x10^3/uL (0.0-1.1); MONO % 5 % (0-9); NEUT # 14.6 x10^3uL (1.8-7.7); NEUT % 90 % (31-73); PLATELET COUNT 233 x10^3/uL (140-400); RED BLOOD COUNT 3.54 x10^6/uL (4.30-5.70); RED CELL DISTRIBUTION WIDTH 14.3 % (11.5-14.5); WHITE BLOOD COUNT 16.2 x10^3/uL (4.0-11.0)
[2018-06-25 06:41] LABS: ADD MAN DIFF? YES
[2018-06-25 08:15] LABS: % LYMPHS 6 % (24-48); % MONOS 5 % (0-10); % SEGS 89 % (35-66)
[2018-06-25 08:16] LABS: PLT ESTIMATE ADEQUATE (ADEQUATE)
[2018-06-25] MEDS ORDERED: IV NORMAL SALINE 1000ML BAG 1,000 ML IV ×2 (08:48)
[2018-06-25] MEDS ORDERED: ALBUMIN HUMAN 25% 200 ML IV (09:00)
[2018-06-25] MEDS ORDERED: DIALYSIS PATIENT. MC ×2 (09:00)
[2018-06-25] MEDS: ASPIRIN CHEWABLE 81 MG TABLET. PO (09:20)
[2018-06-25] MEDS: LACTOBACILLUS RHAMNOSUS GG 1 CAPSULE. PO ×2 (09:20→21:41)
[2018-06-25] MEDS: MULTIVITAMIN with MINERAL TABLET. PO (09:20)
[2018-06-25] MEDS: ASCORBIC ACID 500 MG TABLET PO (09:20)
[2018-06-25] MEDS: HEPARIN PF for SUB-Q USE 5,000 UNIT/0.5 ML VIAL. SQ ×2 (09:21→21:41)
[2018-06-25] MEDS: INSULIN LISPRO 300 UNITS/3 ML INSULN.PEN. SQ (09:22)
[2018-06-25] MEDS: INSULIN GLARGINE 300 UNITS/3 ML INSULN.PEN. SQ ×2 (09:22→21:00)
[2018-06-25 09:24] LABS: FREE T4 0.85 ng/dL (0.76-1.46)
[2018-06-25 14:14] LABS: POC GLUCOSE 125 mg/dL (70-99)
[2018-06-25] MEDS: VANCOMYCIN PER PHARMACY MC (14:47)
[2018-06-25] MEDS: VANCOMYCIN 500 MG in IV NORMAL SALINE 100ML 100 ML IV (17:12)
[2018-06-25 21:23] LABS: POC GLUCOSE 133 mg/dL (70-99)
[2018-06-25] MEDS: ATORVASTATIN CALCIUM 20 MG TABLET PO (21:41)
[2018-06-26 05:50] LABS: POC GLUCOSE 155 mg/dL (70-99)
[2018-06-26] MEDS ORDERED: VANCOMYCIN 1 GM in IV DEXTROSE 5% 250 ML IV ×2 (06:00→11:30)
[2018-06-26] MEDS: PIPERACILLIN/TAZOBACTAM 2.25 GM in IV NORMAL SALINE 50ML 50 ML IV ×3 (06:36→21:36)
[2018-06-26] MEDS: fentaNYL PF VIAL 100 MCG/2 ML VIAL IV (08:15)
[2018-06-26] MEDS: MIDAZOLAM HCL/PF 2 MG/2 ML VIAL. IV (08:15)
[2018-06-26] MEDS ORDERED: LIDOCAINE 2%/EPI 1:100,000 20 ML VIAL. (08:15)
[2018-06-26] MEDS: LIDOCAINE 2%/EPI 1:100,000 20 ML VIAL. IJ (08:45)
[2018-06-26] MEDS: ASPIRIN CHEWABLE 81 MG TABLET. PO (08:57)
[2018-06-26] MEDS: MULTIVITAMIN with MINERAL TABLET. PO (08:57)
[2018-06-26] MEDS: ASCORBIC ACID 500 MG TABLET PO (08:57)
[2018-06-26] MEDS: LACTOBACILLUS RHAMNOSUS GG 1 CAPSULE. PO ×2 (08:57→21:24)
[2018-06-26] MEDS: VANCOMYCIN PER PHARMACY MC (08:58)
[2018-06-26] MEDS: HEPARIN PF for SUB-Q USE 5,000 UNIT/0.5 ML VIAL. SQ ×2 (09:00→21:26)
[2018-06-26] MEDS ORDERED: fentaNYL PF VIAL 100 MCG/2 ML VIAL (09:07)
[2018-06-26] MEDS ORDERED: MIDAZOLAM HCL/PF 2 MG/2 ML VIAL. (09:07)
[2018-06-26] MEDS: BACITRACIN 50,000 UNIT in IV NORMAL SALINE 250ML 250 ML IRR (10:00)
[2018-06-26] MEDS ORDERED: NO ANTICOAGULANT THERAPY. MC (11:15)
[2018-06-26] MEDS ORDERED: 0.9 % SODIUM CHLORIDE 10 ML DISP.SYRIN. (14:00)
[2018-06-26] MEDS ORDERED: ATROPINE 1 MG/10 ML DISP.SYRINGE. (14:00)
[2018-06-26] MEDS ORDERED: EPINEPHrine SYRINGE 1 MG/10 ML SYRINGE (14:00)
[2018-06-26 16:59] LABS: POC GLUCOSE 195 mg/dL (70-99)
[2018-06-26 21:10] LABS: POC GLUCOSE 213 mg/dL (70-99)
[2018-06-26] MEDS: ATORVASTATIN CALCIUM 20 MG TABLET PO (21:24)
[2018-06-26] MEDS: INSULIN GLARGINE 300 UNITS/3 ML INSULN.PEN. SQ (21:25)
[2018-06-27] MEDS: PIPERACILLIN/TAZOBACTAM 2.25 GM in IV NORMAL SALINE 50ML 50 ML IV ×3 (06:03→22:00)
[2018-06-27 08:07] LABS: POC GLUCOSE 155 mg/dL (70-99)
[2018-06-27] MEDS: ASCORBIC ACID 500 MG TABLET PO (08:45)
[2018-06-27] MEDS: ASPIRIN CHEWABLE 81 MG TABLET. PO (08:46)
[2018-06-27] MEDS: MULTIVITAMIN with MINERAL TABLET. PO (08:46)
[2018-06-27] MEDS: LACTOBACILLUS RHAMNOSUS GG 1 CAPSULE. PO ×2 (08:46→21:06)
[2018-06-27] MEDS: HEPARIN PF for SUB-Q USE 5,000 UNIT/0.5 ML VIAL. SQ (08:54)
[2018-06-27] MEDS: VANCOMYCIN PER PHARMACY MC (09:24)
[2018-06-27 11:25] LABS: POC GLUCOSE 208 mg/dL (70-99)
[2018-06-27] MEDS ORDERED: IV NORMAL SALINE 1000ML BAG 1,000 ML IV ×2 (12:01)
[2018-06-27] MEDS ORDERED: diphenhydrAMINE 50 MG/ML VIAL IV ×2 (12:15)
[2018-06-27] MEDS ORDERED: ACETAMINOPHEN 500 MG TABLET PO (12:15)
[2018-06-27] MEDS ORDERED: DIALYSIS PATIENT. MC (12:15)
[2018-06-27 13:16] LABS: HEPATITIS B SURFACE AG Nonreactive (Nonreactive)
[2018-06-27] MEDS ORDERED: LIDOCAINE 1% PF 2 ML VIAL. ×2 (14:00→14:01)
[2018-06-27] MEDS: VANCOMYCIN 500 MG in IV NORMAL SALINE 100ML 100 ML IV (18:01)
[2018-06-27] MEDS: ATORVASTATIN CALCIUM 20 MG TABLET PO (21:06)
[2018-06-27] MEDS: INSULIN GLARGINE 300 UNITS/3 ML INSULN.PEN. SQ (21:08)
[2018-06-27 21:23] LABS: POC GLUCOSE 214 mg/dL (70-99)
[2018-06-28] MEDS: PIPERACILLIN/TAZOBACTAM 2.25 GM in IV NORMAL SALINE 50ML 50 ML IV (05:52)
[2018-06-28 07:28] LABS: POC GLUCOSE 180 mg/dL (70-99)
[2018-06-28] MEDS: ASPIRIN CHEWABLE 81 MG TABLET. PO (08:47)
[2018-06-28] MEDS: LACTOBACILLUS RHAMNOSUS GG 1 CAPSULE. PO ×2 (08:47→20:46)
[2018-06-28] MEDS: MULTIVITAMIN with MINERAL TABLET. PO (08:47)
[2018-06-28] MEDS: ASCORBIC ACID 500 MG TABLET PO (08:52)
[2018-06-28] MEDS: metroNIDAZOLE 500 MG TABLET PO ×2 (10:30→20:46)
[2018-06-28 11:43] LABS: POC GLUCOSE 211 mg/dL (70-99)
[2018-06-28 17:05] LABS: POC GLUCOSE 310 mg/dL (70-99)
[2018-06-28] MEDS: INSULIN LISPRO 300 UNITS/3 ML INSULN.PEN. SQ (18:03)
[2018-06-28] MEDS: ATORVASTATIN CALCIUM 20 MG TABLET PO (20:46)
[2018-06-28] MEDS: INSULIN GLARGINE 300 UNITS/3 ML INSULN.PEN. SQ (21:01)
[2018-06-28 21:04] LABS: POC GLUCOSE 169 mg/dL (70-99)
[2018-06-29] MEDS: VANCOMYCIN RANDOM LEVEL. MC (05:00)
[2018-06-29] MEDS: VANCOMYCIN PER PHARMACY MC (06:00)
[2018-06-29 07:54] LABS: POC GLUCOSE 139 mg/dL (70-99)
[2018-06-29] MEDS: LACTOBACILLUS RHAMNOSUS GG 1 CAPSULE. PO ×3 (09:00→21:48)
[2018-06-29] MEDS: ASCORBIC ACID 500 MG TABLET PO ×2 (09:00→09:04)
[2018-06-29] MEDS: ASPIRIN CHEWABLE 81 MG TABLET. PO (09:03)
[2018-06-29] MEDS: metroNIDAZOLE 500 MG TABLET PO ×2 (09:04→21:48)
[2018-06-29] MEDS: MULTIVITAMIN with MINERAL TABLET. PO (09:04)
[2018-06-29] MEDS ORDERED: IV NORMAL SALINE 1000ML BAG 1,000 ML IV ×2 (09:29)
[2018-06-29] MEDS ORDERED: DIALYSIS PATIENT. MC ×2 (09:30)
[2018-06-29] MEDS ORDERED: LIDOCAINE 2% PF 2ML VIAL. ×2 (09:41→10:00)
[2018-06-29 10:16] LABS: HEMATOCRIT 31.8 % (39.0-53.0); HEMOGLOBIN 10.5 g/dL (13.0-17.5); MEAN CORPUSCULAR HEMOGLOBIN 32 pg (25-35); MEAN CORPUSCULAR HGB CONC 33 g/dL (31-37); MEAN CORPUSCULAR VOLUME 97 fL (79-100); PLATELET COUNT 196 x10^3/uL (140-400); RED BLOOD COUNT 3.28 x10^6/uL (4.30-5.70); RED CELL DISTRIBUTION WIDTH 14.3 % (11.5-14.5); WHITE BLOOD COUNT 9.5 x10^3/uL (4.0-11.0)
[2018-06-29 10:25] LABS: ANION GAP 8 (6-14); BLOOD UREA NITROGEN 31 mg/dL (8-26); BUN/CREATININE RATIO 9 (6-20); CALCIUM 8.7 mg/dL (8.5-10.1); CARBON DIOXIDE 28 mmol/L (21-32); CHLORIDE 101 mmol/L (98-107); CREATININE 3.6 mg/dL (0.7-1.3); GFR 16.7; GLUCOSE 227 mg/dL (70-99); POTASSIUM 3.7 mmol/L (3.5-5.1); SODIUM 137 mmol/L (136-145)
[2018-06-29 10:31] LABS: ALBUMIN 2.3 g/dL (3.4-5.0); ALBUMIN/GLOBULIN RATIO 0.5 (1.0-1.7); ALK PHOS 94 U/L (46-116); ALT (SGPT) 12 U/L (16-63); AST (SGOT) 21 U/L (15-37); TOTAL BILIRUBIN 0.3 mg/dL (0.2-1.0); TOTAL PROTEIN 6.8 g/dL (6.4-8.2)
[2018-06-29 14:57] LABS: POC GLUCOSE 109 mg/dL (70-99)
[2018-06-29 17:15] LABS: POC GLUCOSE 222 mg/dL (70-99)
[2018-06-29] MEDS: VANCOMYCIN 500 MG in IV NORMAL SALINE 100ML 100 ML IV (17:25)
[2018-06-29] MEDS ORDERED: INSULIN LISPRO 300 UNITS/3 ML INSULN.PEN. SQ (18:45)
[2018-06-29 20:46] LABS: POC GLUCOSE 282 mg/dL (70-99)
[2018-06-29] MEDS: ATORVASTATIN CALCIUM 20 MG TABLET PO (21:48)
[2018-06-29] MEDS: INSULIN GLARGINE 300 UNITS/3 ML INSULN.PEN. SQ (21:54)
[2018-06-30 07:27] LABS: POC GLUCOSE 137 mg/dL (70-99)
[2018-06-30] MEDS: ASPIRIN CHEWABLE 81 MG TABLET. PO (08:36)
[2018-06-30] MEDS: metroNIDAZOLE 500 MG TABLET PO ×2 (08:36→20:27)
[2018-06-30] MEDS: MULTIVITAMIN with MINERAL TABLET. PO (08:37)
[2018-06-30] MEDS: LACTOBACILLUS RHAMNOSUS GG 1 CAPSULE. PO ×2 (08:37→20:27)
[2018-06-30] MEDS: ASCORBIC ACID 500 MG TABLET PO (08:38)
[2018-06-30] MEDS: VANCOMYCIN PER PHARMACY MC (09:05)
[2018-06-30 11:30] LABS: POC GLUCOSE 176 mg/dL (70-99)
[2018-06-30 17:18] LABS: POC GLUCOSE 167 mg/dL (70-99)
[2018-06-30] MEDS: ATORVASTATIN CALCIUM 20 MG TABLET PO (20:27)
[2018-06-30] MEDS: INSULIN GLARGINE 300 UNITS/3 ML INSULN.PEN. SQ (20:33)
[2018-06-30 20:34] LABS: POC GLUCOSE 206 mg/dL (70-99)
[2018-07-01] MEDS ORDERED: IV RINGERS,LACTATED 1000ML 1,000 ML IV (07:00)
[2018-07-01] MEDS ORDERED: fentaNYL PF VIAL 100 MCG/2 ML VIAL IV ×2 (07:00)
[2018-07-01] MEDS ORDERED: LIDOCAINE 1% PF 2 ML VIAL. ID (07:00)
[2018-07-01] MEDS ORDERED: PROCHLORPERAZINE 10 MG/2 ML VIAL. IV (07:00)
[2018-07-01] MEDS: IV NORMAL SALINE 1000ML BAG 1,000 ML IV (07:00)
[2018-07-01] MEDS ORDERED: MORPHINE SULFATE 2 MG/ML DISP.SYRIN. IV (07:00)
[2018-07-01] MEDS ORDERED: ONDANSETRON PF 4 MG/2 ML VIAL. IV (07:00)
[2018-07-01] MEDS ORDERED: fentaNYL PF VIAL 100 MCG/2 ML VIAL (07:12)
[2018-07-01] MEDS ORDERED: ROPIVacaine 0.5% PF 20 ML VIAL. (07:17)
[2018-07-01] MEDS ORDERED: MIDAZOLAM HCL/PF 2 MG/2 ML VIAL. (07:20)
[2018-07-01 07:22] LABS: POC GLUCOSE 108 mg/dL (70-99)
[2018-07-01] MEDS: metroNIDAZOLE 500 MG TABLET PO ×2 (09:24→20:34)
[2018-07-01] MEDS: LACTOBACILLUS RHAMNOSUS GG 1 CAPSULE. PO ×2 (09:24→20:34)
[2018-07-01] MEDS: MULTIVITAMIN with MINERAL TABLET. PO (09:24)
[2018-07-01] MEDS: ASPIRIN CHEWABLE 81 MG TABLET. PO (09:24)
[2018-07-01] MEDS: ASCORBIC ACID 500 MG TABLET PO (09:24)
[2018-07-01] MEDS: VANCOMYCIN PER PHARMACY MC (10:06)
[2018-07-01 11:51] LABS: POC GLUCOSE 161 mg/dL (70-99)
[2018-07-01 17:02] LABS: POC GLUCOSE 182 mg/dL (70-99)
[2018-07-01 20:28] LABS: POC GLUCOSE 260 mg/dL (70-99)
[2018-07-01] MEDS: ATORVASTATIN CALCIUM 20 MG TABLET PO (20:34)
[2018-07-01] MEDS: INSULIN GLARGINE 300 UNITS/3 ML INSULN.PEN. SQ (20:40)
[2018-07-02 07:24] LABS: POC GLUCOSE 163 mg/dL (70-99)
[2018-07-02] MEDS ORDERED: IV NORMAL SALINE 1000ML BAG 1,000 ML IV ×2 (08:00)
[2018-07-02] MEDS ORDERED: LIDOCAINE 2% PF 2ML VIAL. ×2 (08:07→08:30)
[2018-07-02] MEDS ORDERED: DIALYSIS PATIENT. MC ×2 (09:00)
[2018-07-02] MEDS: ASPIRIN CHEWABLE 81 MG TABLET. PO (12:41)
[2018-07-02] MEDS: ASCORBIC ACID 500 MG TABLET PO (12:41)
[2018-07-02] MEDS: LACTOBACILLUS RHAMNOSUS GG 1 CAPSULE. PO (12:41)
[2018-07-02 12:42] LABS: POC GLUCOSE 120 mg/dL (70-99)
[2018-07-02] MEDS: MULTIVITAMIN with MINERAL TABLET. PO (12:42)
[2018-07-02] MEDS: metroNIDAZOLE 500 MG TABLET PO (12:42)
[2018-07-02 13:15] LABS: POC GLUCOSE 120 mg/dL (70-99)
[2018-07-02] MEDS: VANCOMYCIN 500 MG in IV NORMAL SALINE 100ML 100 ML IV (16:03)
[2018-07-03] MEDS ORDERED: DOXYCYCLINE HYCLATE 100 MG TABLET PO (09:00)
== END 2018-07-02 17:45 | disposition home health service (06) | DRG 853 ==
LOC: 2 NORTH 06-26 16:45 → 5 SOUTH 14:37 → 1 WEST ICU 06-24 23:10
PROC: 0QBR0ZX Excision of Left Toe Phalanx, Open Approach, Diagnostic (ICD-10-PCS; principal; 2018-06-24 13:51)
PROC: 0JBP0ZZ Excision of Left Lower Leg Subcutaneous Tissue and Fascia, Open Approach (ICD-10-PCS; 2018-06-24 13:51)
PROC: 0Y6W0Z3 Detachment at Left 4th Toe, Low, Open Approach (ICD-10-PCS; 2018-06-24 13:51)
PROC: 5A1223Z Performance of Cardiac Pacing, Continuous (ICD-10-PCS; 2018-06-24 13:51)
PROC: 5A1D70Z Performance of Urinary Filtration, Intermittent, Less than 6 Hours Per Day (ICD-10-PCS; 2018-06-24 13:51)
PROC: 5A1D70Z Performance of Urinary Filtration, Intermittent, Less than 6 Hours Per Day (ICD-10-PCS; 2018-06-24 13:51)
PROC: 5A1D70Z Performance of Urinary Filtration, Intermittent, Less than 6 Hours Per Day (ICD-10-PCS; 2018-06-24 13:51)
PROC: 5A1D70Z Performance of Urinary Filtration, Intermittent, Less than 6 Hours Per Day (ICD-10-PCS; 2018-06-24 13:51)
PROC: 0JH606Z Insertion of Pacemaker, Dual Chamber into Chest Subcutaneous Tissue and Fascia, Open Approach (ICD-10-PCS; 2018-06-24 13:51)
PROC: 02H63JZ Insertion of Pacemaker Lead into Right Atrium, Percutaneous Approach (ICD-10-PCS; 2018-06-24 13:51)
PROC: 02HK3JZ Insertion of Pacemaker Lead into Right Ventricle, Percutaneous Approach (ICD-10-PCS; 2018-06-24 13:51)
DX: A41.9 Sepsis, unspecified organism (principal); N18.6 End stage renal disease; L03.116 Cellulitis of left lower limb; I44.2 Atrioventricular block, complete; I12.0 Hypertensive chronic kidney disease with stage 5 chronic kidney disease or end stage renal disease; M86.8X7 Other osteomyelitis, ankle and foot; E11.69 Type 2 diabetes mellitus with other specified complication; E11.610 Type 2 diabetes mellitus with diabetic neuropathic arthropathy; Z99.2 Dependence on renal dialysis; E11.65 Type 2 diabetes mellitus with hyperglycemia; E11.42 Type 2 diabetes mellitus with diabetic polyneuropathy; E11.649 Type 2 diabetes mellitus with hypoglycemia without coma; E66.9 Obesity, unspecified; Z66 Do not resuscitate; M19.90 Unspecified osteoarthritis, unspecified site; Z83.3 Family history of diabetes mellitus; E11.22 Type 2 diabetes mellitus with diabetic chronic kidney disease; E11.621 Type 2 diabetes mellitus with foot ulcer; Z86.12 Personal history of poliomyelitis; I25.10 Atherosclerotic heart disease of native coronary artery without angina pectoris; E78.5 Hyperlipidemia, unspecified; Z95.5 Presence of coronary angioplasty implant and graft; I95.9 Hypotension, unspecified; L97.529 Non-pressure chronic ulcer of other part of left foot with unspecified severity; L97.519 Non-pressure chronic ulcer of other part of right foot with unspecified severity; Z22.322 Carrier or suspected carrier of Methicillin resistant Staphylococcus aureus
CPT/HCPCS: 33208; 33210; 36415; 71045; 71046; 73630; 80048; 80053; 80202; 82962; 83036; 84439; 84443; 85007; 85025; 85027; 85610; 85651; 86140; 86706; 87040; 87071; 87075; 87186; 87340; 93005; 97162-GP; 97166-GO; 99152; 99153; A7015; C1785; C1892; C1898; J0171; J0461; J0690; J1265; J1644; J1815; J2001; J2250; J2405; J2543; J2704; J2795; J3010; J3370; J3490; J7040; J7050; J7120